=== PATIENT | female | born 1960 | race Caucasian/White ===

== ENCOUNTER 2017-02-14 12:34 | Day surgery (SDC) | payer MEDICAID ==
[2017-02-14 12:50] VITALS: RESP 16; TEMP 97.7
[2017-02-14] MEDS ORDERED: ceFAZolin 1 GM/10 ML VIAL ONE (13:20)
[2017-02-14] MEDS ORDERED: LIDOCAINE HCL 1% 20 ML VIAL ONE (13:28)
[2017-02-14] MEDS ORDERED: BUPIVACAINE HCL/PF 0.5% 30 ML VIAL ONE (13:29)
[2017-02-14] MEDS ORDERED: NORFLURANE/HFC 245FA 1 APPLIC CAN TOPICAL ONE (13:44)
[2017-02-14 14:12] VITALS: O2SAT 93
[2017-02-14 14:32] VITALS: BP 117/68; PULSE 68
--- NOTE | 2017-02-14 15:46 | OPERATIVE REPORT ---
DATE OF SURGERY: 02/14/17 SURGEON: Chao Escamilla DPM ANESTHESIA: Local. PREOPERATIVE DIAGNOSIS: Exostosis, fifth digit, right foot. POSTOPERATIVE DIAGNOSIS: Exostosis, fifth digit, right foot. PROCEDURE PERFORMED: Exostectomy, fifth digit, right foot. HEMOSTASIS: Digital Tourni-Cot. ESTIMATED BLOOD LOSS: Minimal. PROCEDURE IN DETAIL: The patient was escorted into the operating room and placed on the operating table in a supine position. The fifth digit was then anesthetized utilizing 5 mL of a 1:1 mixture of 1% lidocaine plain and 0.5% Marcaine plain. The right foot was then scrubbed, prepped and draped in the usual aseptic manner. An Esmarch bandage was utilized to exsanguinate the patients right foot, and the Tourni-Cot was applied to the fifth digit. Attention was then directed to the distal medial aspect of the fifth digit where a 1 cm linear incision was made. The incision was deepened through the subcutaneous tissues with care being taken to retract all vital neural and vascular structures. All bleeders were cauterized as necessary. At this time a linear longitudinal capsulotomy was performed over the dorsal medial aspect of the capsule surrounding the distal interphalangeal joint of the fifth digit. The exostosis was then clearly identified and removed with a rongeur. All rough edges were then smoothed with a bone rasp. A convex surface was then created to reduce any prominence thoroughly. The wound was flushed with copious amounts of sterile normal saline. The capsule was then reapproximated and coapted utilizing 3-0 Vicryl sutures and the skin was reapproximated and coapted utilizing 3-0 nylon in horizontal mattress and simple interrupted suture technique. Upon completion of the procedure the wound was covered with bacitracin, Adaptic, 4x4 gauze and Coban. The Tourni-Cot was removed and a prompt hyperemic response was noted to all digits of the right foot. The patient tolerated the procedure and anesthesia well. She was transferred to the recovery room with vital signs stable and vascular status intact to all toes of the right foot. Following a period of postoperative monitoring, the patient will be discharged home on the following written and oral postoperative instructions. 1. Keep dressings dry and intact. 2. Avoid excessive ambulation. 3. Ice and elevate right foot when at rest. 4. Wear surgical shoe at all times when ambulating. 5. Contact Dr. Escamilla for all postoperative followup care and if any problems arise. 6. Prescriptions were written for Vicodin for pain. ROMÁN
--- NOTE | 2017-02-26 17:43 | PREOPERATIVE H&P ---
History of Present Illness (Georgia Cortes; 02/11/2017 3:51 PM) The patient is a 56 year old female. Removal of bone spur fifth digit R/foot. Patient will review Pre/PO instructions, sign the Consent form and discuss surgical procedure with Dr. Escamilla. Also, a prescription will be given for pain Post Op. Allergies (Georgia B Sebastian; 02/11/2017 3:51 PM) No Known Drug Gwucatffo08/28/2014 Family History (Georgia Yamileth Sebastian; 02/11/2017 3:51 PM) Kidney Disease Sister. Fraternal twin sister Mother dementia (living age 90) Sister COPD (smoker) Heart Disease (not otherwise specified) Diabetes Mellitus Type II 6 Sisters, 7 Brothers Social History (Georgia Yamileth Sebastian; 02/11/2017 3:51 PM) Drug Use None Tobacco Use Current every day smoker. 1/2 pack daily (previously 1ppd for about 10 years) Alcohol Use None. 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 Medication History (Georgia B Sebastian; 02/11/2017 3:51 PM) Ergocalciferol ([id number] Capsule, 1 (one) Capsule Oral weekly x 12 weeks, Taken starting 01/31/2017) Active. No Current Medications (Taken starting 02/11/2017) Medications Reconciled Vitals (Georgia YamilethLaurie Cortes; 02/11/2017 3:52 PM) 02/11/2017 3:52 PM Pain Level: 8/10 Resp.: 16 (Unlabored) Physical Exam (Chao Escamilla DPMatilde; 02/11/2017 4:02 PM) Musculoskeletal Lower Extremity Ankle/Foot: Foot - Evaluation of related systems reveals - well developed, well nourished and in no acute distress, alert and oriented x3 and neurovascularly intact bilaterally. Examination of the right foot reveals - no swelling, edema or erythema of surrounding tissue, normal foot and ankle movements and range of motion, no crepitus and no instability. Examination of the left foot reveals - no tenderness to palpation, no pain, no swelling, edema or erythema of surrounding tissue, normal foot and ankle movements and range of motion, no crepitus and no known fractures or deformities. Inspection and Palpation - Sensation is - normal, (R) and normal, (L). Pulses - 2+, (R) and 2+, (L). Examination reveals - Note: (+) callus medial 5th dig R. (+) underlying spurring. Assessment & Plan (Chao Escamilla DPM; 02/11/2017 4:03 PM) Exostosis (726.91) Impression: presurgical consult for exostectomy. Reviewed pre and post op instructions. Rx pain meds. Answered questions. Scheduled POFU. MTDD
== END 2017-02-14 14:27 | disposition home or self-care (01) ==
LOC: SDS 12:34
PROVIDERS: ATTEND Podiatrist Foot & Ankle Surgery
DX: M89.8X7 Other specified disorders of bone, ankle and foot (principal); M77.51 Other enthesopathy of right foot and ankle
CPT/HCPCS: J0690